=== PATIENT | male | born 1970 | race Caucasian/White ===

== ENCOUNTER → 2017-05-11 | Outpatient (CLI) | payer BC ==
--- NOTE | 2017-05-11 18:41 | US ---
EXAMINATION TYPE: US abdomen complete DATE OF EXAM: 05/11/2017 COMPARISON: NONE CLINICAL HISTORY: R10.9 Abdominal pain. RUQ pain EXAM MEASUREMENTS: Liver Length: 14.7 cm Gallbladder Wall: 0.27 cm CBD: 0.21 cm Spleen: 11.6 cm Right Kidney: 10.0 x 4.3 x 4.9 cm Left Kidney: 10.4 x 4.6 x 3.9 cm Pancreas: Obscured by bowel gas Liver: wnl Gallbladder: No stones seen Evidence for sonographic Billings's sign: No CBD: wnl Spleen: wnl Right Kidney: No hydronephrosis or masses seen Left Kidney: No hydronephrosis or masses seen Upper IVC: wnl Abd Aorta: wnl IMPRESSION: Negative complete abdominal sonogram. No gallstones or dilated ducts. No free fluid.
== END | disposition home or self-care (01) ==
LOC: RADUSMAIN 18:00
PROVIDERS: ATTEND Family Medicine
DX: R10.9 Unspecified abdominal pain (principal)
CPT/HCPCS: 76700

== ENCOUNTER → 2017-07-22 | Outpatient (CLI) | payer BC ==
--- NOTE | 2017-07-22 12:54 | CT ---
EXAMINATION TYPE: CT sinus wo con DATE OF EXAM: 07/22/2017 COMPARISON: Previous dated 04/18/2014 HISTORY: Sinusitis CT DLP: 622.3 mGycm. Automated Exposure Control for Dose Reduction was Utilized. TECHNIQUE: CT scan of the sinuses is performed without contrast, axial images are obtained, coronal r eformatted images are also reviewed. FINDINGS: There is mucosal disease, lobular soft tissue along the maxillary sinuses similar to prior exam and also involving the ethmoid air cells and to lesser extent sphenoid sinus, frontal sinus. No air-fluid levels. No thickening of the tympanic membranes. Auditory ossicles are symmetric. No erosio n of the scutum. Ostiomeatal units are obscured by soft tissue. There is a small chelo bullosa prese nt on the right. Visualized portion of mastoid air cells show no abnormal opacification. The globes are intact bilate rally. IMPRESSION: The findings are similar to prior exam. Findings could be due to underlying polyp diseas e, chronic sinusitis
== END | disposition home or self-care (01) ==
LOC: RADCTMAIN 08:46
PROVIDERS: ATTEND Otolaryngology
DX: J32.9 Chronic sinusitis, unspecified (principal)
CPT/HCPCS: 70486

== ENCOUNTER 2017-12-11 19:17 | Emergency (ER) | payer BC ==
[2017-12-11 19:43] VITALS: BP 127/86; PULSE 81; RESP 18; TEMP 98.5
--- NOTE | 2017-12-11 20:19 | ED ---
Wound/Laceration HPI - General Chief Complaint: Wound/Laceration Stated Complaint: thumb lac Time Seen by Provider: 12/11/17 19:59 Source: patient, RN notes reviewed Mode of arrival: ambulatory Limitations: no limitations - History of Present Illness Initial Comments: 47-year-old male presents emergency Department chief complaint laceration to his left thumb. Patient states she is using an angle crystal flat grinder and states that it slipped going through his welding glove and cut his left thumb. He does have full range of motion he is up-to-date on his tetanus. He states the bleeding has stopped at this time. Patient denies any paresthesias. Patient offers no other complaints. - Related Data Allergies Allergy/AdvReac Type Severity Reaction Status Date / Time bee pollen Allergy Swelling Verified 12/11/17 19:43 iodine Allergy Confusion Verified 12/11/17 19:43 Review of Systems ROS Statement: Those systems with pertinent positive or pertinent negative responses have been documented in the HPI. ROS Other: All systems not noted in ROS Statement are negative. Past Medical History Past Medical History: No Reported History History of Any Multi-Drug Resistant Organisms: None Reported Past Surgical History: Orthopedic Surgery Additional Past Surgical History / Comment(s): right knee surgery Past Psychological History: No Psychological Hx Reported Smoking Status: Never smoker Past Alcohol Use History: None Reported Past Drug Use History: None Reported General Exam Limitations: no limitations General appearance: alert, in no apparent distress Neck exam: Present: normal inspection. Absent: tenderness, meningismus, lymphadenopathy Respiratory exam: Present: normal lung sounds bilaterally. Absent: respiratory distress, wheezes, rales, rhonchi, stridor Cardiovascular Exam: Present: regular rate, normal rhythm, normal heart sounds. Absent: systolic murmur, diastolic murmur, rubs, gallop, clicks Extremities exam: Present: other (Left thumb there is a 2 cm laceration, patient has full range of motion and full strength against resistance, there is no obvious tendon laceration.) Course Vital Signs 12/11/17 19:40 Temperature 98.5 F Pulse Rate 81 Respiratory 18 Rate Blood Pressure 127/86 O2 Sat by Pulse 99 Oximetry Procedures - Laceration Laceration #1 Consent Obtained: verbal consent Indication: laceration Site: hand (Left thumb) Size (cm): 2 Description: linear Depth: simple, single layer Anesthetic Used: lidocaine 1%, without epi Anesthesia Technique: local infiltration Amount (mls): 3 Pre-repair: wound explored, irrigated extensively, deep structures intact Type of Sutures: nylon Size of Sutures: 4-0 Number of Sutures: 5 Technique: simple, interrupted Patient Tolerated Procedure: well, no complications Medical Decision Making - Medical Decision Making 47-year-old male presents emergency from for left thumb laceration. Patient has full range of motion no obvious tendon laceration. Patient will follow-up for recheck in 48 hours patient had 5 sutures placed and wound care instructions were given. Disposition Clinical Impression: Laceration of left thumb Disposition: HOME SELF-CARE Condition: Stable Instructions: Care For Your Stitches (ED), Finger Laceration (ED) Additional Instructions: Have sutures removed in 10 days.Please return to the Emergency Department if symptoms worsen or any other concerns. Is patient prescribed a controlled substance at d/c from ED?: No Referrals: Eliecer Tomas MD [Primary Care Provider] - 1-2 days Time of Disposition: 20:19
== END 2017-12-11 20:32 | disposition home or self-care (01) ==
LOC: EC 19:17
DX: S61.012A Laceration without foreign body of left thumb without damage to nail, initial encounter (principal); Z91.048 Other nonmedicinal substance allergy status; W31.89XA Contact with other specified machinery, initial encounter; Y92.009 Unspecified place in unspecified non-institutional (private) residence as the place of occurrence of the external cause
CPT/HCPCS: 12001; 99282

== ENCOUNTER → 2018-07-23 | Outpatient (CLI) | payer BC | END | disposition home or self-care (01) | LOC: LABWHC1 16:35 | PROVIDERS: ATTEND Internal Medicine Critical Care Medicine | DX: R06.00 Dyspnea, unspecified (principal); J45.909 Unspecified asthma, uncomplicated | CPT/HCPCS: 36415; 82785; 85008; 86001; 86606; 86609 ==

== ENCOUNTER 2019-03-15 09:27 | Day surgery (SDC) | payer BC ==
[2019-03-14 09:28] VITALS: BMI 29.5
[~2019-03-15 09:27] MED LIST: LACTATED RINGERS 1,000 ML IV SCH; LIDOCAINE 1% 20 ML VIAL (10MG/ML) FOR IV START INTRADERMA PRN
[2019-03-15 09:46] VITALS: RESP 16; TEMP 97.5
[2019-03-15] MEDS ORDERED: PROPOFOL 10 MG/ML 20 ML VIAL IV ONE (10:38)
--- NOTE | 2019-03-15 11:00 | P.PCN ---
Date of Procedure: 03/15/19 Procedure(s) Performed: BRIEF HISTORY: Patient is a 49-year-old pleasant male scheduled for an elective colonoscopy as a part of screening for colorectal neoplasia. PROCEDURE PERFORMED: Colonoscopy. PREOPERATIVE DIAGNOSIS: Screening for colon cancer. IV sedation per Anesthesia. PROCEDURE: After informed consent was obtained, the patient, was brought into the endoscopy unit. IV sedation was administered by Anesthesia under continuous monitoring. Digital rectal examination was normal. Initially the Olympus CF-160 flexible video colonoscope was then inserted in the rectum, gradually advanced into the cecum without any difficulty. Careful examination was performed as the scope was gradually being withdrawn. Ileocecal valve and the appendiceal orifice were visualized and appeared normal. Prep was excellent. Mucosa of the cecum, ascending colon, transverse colon, descending colon, sigmoid colon, and rectum appeared normal. Retroflexion was performed in the rectum and no lesions were seen. The patient tolerated the procedure well. IMPRESSION: Normal-appearing colon from rectum to cecum with no evidence of colorectal neoplasia. RECOMMENDATIONS: Findings of this examination were discussed with the patient as well as his family. He was advised to have a repeat screening colonoscopy in 10 years.
[2019-03-15 11:33] VITALS: BP 123/76; PULSE 67
== END 2019-03-15 11:49 | disposition home or self-care (01) ==
LOC: ORWHC2ENDO 09:27
PROVIDERS: ATTEND Internal Medicine Gastroenterology
DX: Z12.11 Encounter for screening for malignant neoplasm of colon (principal); J45.909 Unspecified asthma, uncomplicated; Z91.041 Radiographic dye allergy status; Z91.048 Other nonmedicinal substance allergy status; Z79.51 Long term (current) use of inhaled steroids; Z98.890 Other specified postprocedural states
CPT/HCPCS: J2704; G0121

== ENCOUNTER → 2019-12-18 | Outpatient (CLI) | payer BC ==
--- NOTE | 2019-12-18 18:09 | CT ---
EXAMINATION TYPE: CT thoracic spine wo con DATE OF EXAM: 12/18/2019 COMPARISON: None. HISTORY: Hurt back 3 weeks ago waxing top of car with persistent pain. CT DLP: 1008 mGycm Automated exposure control for dose reduction was used. FINDINGS: Thoracic spine shows satisfactory alignment without evidence of acute fracture or dislocation. Verteb ral body heights and disc space heights are fairly well maintained. Mild multilevel anterior and late ral spurring. Spinal canal is preserved. Review of axial images shows no suspicious abnormality. Visualized ribs are intact. Visualized lungs are clear. IMPRESSION: As above. No acute fracture or dislocation is seen.
== END | disposition home or self-care (01) ==
LOC: RADCTMAIN 17:15
PROVIDERS: ATTEND Nurse Practitioner Adult Health
DX: M51.34 Other intervertebral disc degeneration, thoracic region (principal)
CPT/HCPCS: 72128